=== PATIENT | male | born 1965 | race Caucasian/White ===

== ENCOUNTER 2017-04-11 10:36 | Emergency (ER) | payer OTHER ==
[~2017-04-11] VITALS: Ht 180.3 cm; Wt 136.1 kg
--- NOTE | ~2017-04-11 | EKG ---
[place] [address] [facility] [employer] [place] [address] ELECTROCARDIOGRAM REPORT Name: SHARLENE THORNE [facility] #: [facility]P 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
[~2017-04-11 10:36] MED LIST: ALDACTONE PO; AMLODIPINE BESYL5 MG PO; AMLODIPINE PO; AUGMENTIN 875875 MG PO; CIPRO PO; CIPRO500 MG PO; CIPROFLOXACIN500 M1 PO; DIGOXIN PO; GEMFIBROZIL 60600 MG PO; GLUCOPHAGE500 MG PO; IBUPROFEN200 MG PO; JANUVIA50 MG PO; LANOXIN 0.250.25 M1 PO; LEVEMIR SUBQ; LIPITOR20 MG PO; LISINOPRIL PO; LISINOPRIL40 MG PO; LOPRESSOR 50 MG50 M1 PO; LOPRESSOR PO; LOPRESSOR50 PO; LORTAB 5 MG/5001 TA1 PO; MEN'S MULTI-VI1 EACH PO; METFORMIN PO; NORVASC 5 MG TAB5 MG PO; NORVASC10 MG PO; NOVOLOG100 UNIT/M SUBQ; NOVOPEN 31 EACH SUBQ; SPIRONOLACTONE25 M1 PO; TOPROL XL50 MG PO; TYLENOL325 MG PO; ZESTRIL40 MG PO
[2017-04-11] MEDS ORDERED: SORINE 80 MG TA80 M1 PO (10:53)
[2017-04-11] MEDS ORDERED: COZAAR 50 MG TA50 M2 PO (10:54)
[2017-04-11] MEDS ORDERED: ELIQUIS5 MG PO (10:55)
[2017-04-11] MEDS ORDERED: HYDROCHLOROTHIA25 M1 PO (10:56)
[2017-04-11 10:57] LABS: ABSOLUTE NEUTROPHILS 6.9 thou/uL (1.4-8.2); BASOPHILS 0.8 % (0.0-2.0); EOSINOPHILS 2.1 % (0.0-3.0); HEMATOCRIT 38.7 % (42.0-52.0); HEMOGLOBIN 13.2 gm/dL (14.0-18.0); LYMPHOCYTES 23.4 % (24.0-44.0); MCH 31.7 pg (26.0-34.0); MCHC 34.2 g/dL (28.0-37.0); MCV 92.7 fL (80.0-100.0); MONOCYTES 8.8 % (1.0-8.0); PLATELET COUNT 345 thou/uL (150-400); POLYS 64.9 % (36.0-66.0); RBC 4.18 mil/uL (4.50-6.00); RDW 13.8 % (10.5-14.5); WBC 10.7 thou/uL (4.0-11.0)
[2017-04-11] MEDS ORDERED: HUMALOG100 UNIT/1 SUBQ (10:57)
[2017-04-11 11:04] LABS: MANUAL DIFF NO
[2017-04-11 11:11] LABS: ANION GAP 7 mmol/L (7-16); BUN 29 mg/dL (7-18); CALCIUM 9.6 mg/dL (8.5-10.1); CHLORIDE 100 mmol/L (98-107); CO2 29 mmol/L (21-32); CREATININE 1.8 mg/dL (0.7-1.3); GLUCOSE 262 mg/dL (74-106); POTASSIUM 3.9 mmol/L (3.5-5.1); SODIUM 136 mmol/L (136-145)
[2017-04-11 11:24] LABS: NT-PRO BRAIN NAT PEPTIDE 203 pg/mL (<300); TROPONIN-I < 0.04 ng/mL (<0.04-0.07)
[2017-04-11 13:23] VITALS: BP 148/83
== END 2017-04-11 13:25 | disposition home or self-care (01) ==
LOC: ER 10:36
PROVIDERS: Nurse Practitioner
DX: R07.89 Other chest pain (principal); I11.9 Hypertensive heart disease without heart failure; E11.9 Type 2 diabetes mellitus without complications; I48.91 Unspecified atrial fibrillation; N17.9 Acute kidney failure, unspecified; F10.99 Alcohol use, unspecified with unspecified alcohol-induced disorder; Z79.4 Long term (current) use of insulin

== ENCOUNTER 2018-10-19 20:34 | Emergency (ER) | payer OTHER ==
[~2018-10-19] VITALS: Ht 177.8 cm; Wt 90.7 kg
[~2018-10-19 20:34] MED LIST changes: +COZAAR 50 MG TA50 M2 PO; +ELIQUIS5 MG PO; +HUMALOG100 UNIT/1 SUBQ; +HYDROCHLOROTHIA25 M1 PO; +SORINE 80 MG TA80 M1 PO
[2018-10-19] MEDS ORDERED: LIPITOR10 MG PO (20:44)
[2018-10-19] MEDS ORDERED: FERREX 150 FORT1 CAP PO (20:44)
[2018-10-19] MEDS ORDERED: CARDIZEM CD120 MG PO (20:45)
[2018-10-19] MEDS ORDERED: NOVOLOG100 UNIT/1 SUBQ (20:46)
[2018-10-19] MEDS ORDERED: NOVOLOG100 UNIT/M SUBQ (20:47)
[2018-10-19] MEDS ORDERED: ZANTAC 150MG T150 MG PO (20:48)
[2018-10-19 22:23] LABS: URINE BILIRUBIN NEGATIVE (Negative); URINE BLOOD 3+ (Negative); URINE CLARITY CLEAR; URINE COLOR YELLOW; URINE GLUCOSE-RANDOM* NEGATIVE (Negative); URINE KETONES NEGATIVE (Negative); URINE NITRITE-REFLEX NEGATIVE (Negative); URINE PROTEIN (DIPSTICK) NEGATIVE (Negative); URINE SPECIFIC GRAVITY 1.015 (1.005-1.035); URINE UROBILINOGEN 0.2 E.U./dl (0.2-1.0)
[2018-10-19 22:31] LABS: URINE LEUKOCYTES-REFLEX 1+ (Negative)
[2018-10-19 22:32] LABS: CASTS None Seen /LPF (None Seen); MUCUS 0-3 Light strn/LPF (None Seen); SQUAMOUS 0-3 Few /LPF (0-3); URINE WBC-REFLEX 6-15 Few /HPF (0-5)
[2018-10-19 22:33] LABS: CRYSTALS None Seen /LPF (None Seen)
[2018-10-19 22:39] VITALS: BP 138/68
== END 2018-10-19 22:41 | disposition home or self-care (01) ==
LOC: ER 20:34
PROVIDERS: Nurse Practitioner Family
DX: R33.9 Retention of urine, unspecified (principal); I10 Essential (primary) hypertension; E11.9 Type 2 diabetes mellitus without complications; I48.91 Unspecified atrial fibrillation; N19 Unspecified kidney failure

== ENCOUNTER → 2018-11-25 | Outpatient (CLI) | payer OTHER ==
[~2018-11-25] MED LIST changes: +CARDIZEM CD 18180 M3 PO; +CARDIZEM CD120 MG PO; +CARVEDILOL25 MG PO; +FERREX 150 FORT1 CAP PO; +HYDRALAZINE 2525 MG PO; +HYDROCODON-ACE1 EAC7 PO; +KEFLEX500 M2 PO; +LIPITOR10 MG PO; +NOVOLOG100 UNIT/1 SUBQ; +TORSEMIDE10 MG PO; +ZANTAC 150MG T150 MG PO
[2018-11-25 09:05] VITALS: BP 124/59
[2018-11-25 09:29] VITALS: BP 124/59
[2018-11-25 10:30] VITALS: BP 127/65
--- NOTE | 2018-11-25 10:35 | NUR ---
HERE FOR 1ST OF 5 PLANNED VENOFER INFUSIONS FOR MICROCYTIC, IRON DEFICIENCY ANEMIA. PT DENIES ANY NOTED BLOOD LOSS OTHER THAN HEMORRHOIDS. C/O FATIGUE, DYSPNEA ON EXERTION, LOW ENERGY, OCCASIONAL LIGHT HEADEDNESS. FOUND ANEMIA ON BLOOD CHECK PRIOR TO A SCHEDULED ABLATION FOR HIS A-FIB. THAT PROCEDURE WAS PUT ON HOLD UNTIL ANEMIA IMPROVES. PT TOLERATED TODAY'S INFUSION WITHOUT INCIDENT, NO S/S REACTION. VERBALIZES UNDERSTANDING OF PLAN AND MATERIALS GIVEN TO HIM. SCHEDULED TO RETURN AGAIN ON FRIDAY. PHONED DR. BARRAGAN WHO SAID PT CAN COME IN FOR F/U LABS THE FIRST PART OF DECEMBER. DISMISSED IN STABLE CONDITION.
== END ==
LOC: OPONC 00:52
DX: D50.9 Iron deficiency anemia, unspecified (principal)
CPT/HCPCS: 95000

== ENCOUNTER → 2018-11-27 | Outpatient (CLI) | payer OTHER ==
[~2018-11-27] MED LIST changes: -CARDIZEM CD 18180 M3 PO; -CARVEDILOL25 MG PO; -HYDRALAZINE 2525 MG PO; -HYDROCODON-ACE1 EAC7 PO; -KEFLEX500 M2 PO; -TORSEMIDE10 MG PO
[2018-11-27 14:05] VITALS: BP 144/55
[2018-11-27 14:57] VITALS: BP 140/47
--- NOTE | 2018-11-27 15:18 | NUR ---
IN FOR #2 OF 5 VENOFER INFUSIONS. STATED TOLERATED FIRST INFUSION WITHOUT DIFFICULTY. DENIED PAIN. TOLERATED TODAY'S INFUSION WITHOUT INCIDENT. POST VITAL SIGNS GOOD. TO RETURN ON FRIDAY. DISMISSED IN GOOD CONDITION.
== END ==
LOC: OPONC 08:16
DX: D50.9 Iron deficiency anemia, unspecified (principal)
CPT/HCPCS: 95000

== ENCOUNTER → 2018-11-30 | Outpatient (CLI) | payer OTHER ==
[~2018-11-30] MED LIST changes: +HYDRALAZINE 2525 MG PO
[2018-11-30 14:05] VITALS: BP 142/74
[2018-11-30 15:15] VITALS: BP 136/72
--- NOTE | 2018-11-30 16:43 | NUR ---
IN FOR #3 OF 5 VENOFER INFUSIONS. PATIENT STATED HE FEELS LIKE HE IS GETTING STRONGER AND NOT TIRED. TOLERATED INFUSION WELL WITH NO ADVERSE REACTION NOTED. POST VITAL SIGNS GOOD. DISMISSED IN GOOD CONDITION. TO RETURN FRIDAY FOR NEXT INFUSION.
== END ==
LOC: OPONC 01:22
DX: D50.9 Iron deficiency anemia, unspecified (principal)
CPT/HCPCS: 95000

== ENCOUNTER → 2018-12-02 | Outpatient (CLI) | payer OTHER ==
[2018-12-02 14:10] VITALS: BP 106/48
--- NOTE | 2018-12-02 15:18 | NUR ---
HERE FOR 4TH OF 5 IRON SUCROSE INFUSIONS. REPORTS TOLERATING ALL OF THEM WITHOUT INCIDENT. DOES STATE THAT HE CAME DOWN WITH SOMETHING YESTERDAY AND WENT HOME AFTER WORK AND STRAIGHT TO BED AT 5PM C/O CHILLS, NAUSEA AND STOMACH PAINS. DID NOT TAKE TEMP. 99.1 UPON ARRIVAL TO CLINIC TODAY NAUSEA IS GONE, STILL FEELS A LITTLE ILL BUT FEELS LIKE HE CAN EAT SOMETHING NOW. FEELS A BIT CLAMMY. NO DIZZINESS OR OTHER SYMPTOMS NOTED. PT FEELS WELL ENOUGH FOR INFUSION. ADDED TO THIS, PT REPORTED TO NURSE THAT HIS L CALF HAS BEEN TIGHT AND PAINFUL FOR THE LAST 1.5 WEEKS AND THIS PRESENTED ITSELF OVERNIGHT. STATES CRAMPS AT NIGHT, FEELS BETTER AFTER WALKING ON IT, HURTS MORE WHEN HE FLEXES HIS FOOT. CALF IS TIGHT UPON EXAMINATION AND MEASURING 2" LARGER THAN HIS R CALF. MEASUREMENTS TAKEN OVER JEANS: R CALF 18.5", L CALF 20.5". PHONED TWO CONCERNS TO DR. GOTTI: 1. RECENT ILLNESS...OK TO PROCEED WITH IRON. OK'D TO PROCEED. 2. LLE EDEMA. RECEIVED ORDER FOR ULTRASOUND AND ARRANGED TO DO THIS THIS AFTERNOON UPON COMPLETION OF TODAY'S INFUSION. PT AGREEABLE. IRON INFUSION WITHOUT INCIDENT AT THIS TIME.
[2018-12-02 15:45] VITALS: BP 99/46
--- NOTE | 2018-12-02 15:54 | NUR ---
COMPLETED IRON INFUSION WITHOUT INCIDENT. AWAITING OPEN SPOT IN ULTRASOUND FOR DOPPLER OF LLE. PT WILL DISMISS FROM THERE ONCE DONE. ADVISED PT TO MONITOR HIS BP AND CALL HIS PHYSICIAN IF IT REMAINS LOW OR HE BECOMES SYMPTOMATIC. ENCROUAGED GOOD FLUID INTAKE ONCE HE GETS HOME IF HE IS NO LONGER NAUSEATED. HAS TOLERATED 2 GLASSES OF WATER WHILE HERE TODAY.
== END ==
LOC: ULTRA 02:33 → OPONC 02:33
DX: D50.9 Iron deficiency anemia, unspecified (principal); R60.0 Localized edema
CPT/HCPCS: 95000

== ENCOUNTER 2018-12-04 16:11 | Inpatient (IN) | payer OTHER ==
[~2018-12-04] VITALS: Ht 177.8 cm; Wt 131.9 kg
[~2018-12-04 16:11] MED LIST changes: -HYDRALAZINE 2525 MG PO
[2018-12-04 17:54] VITALS: BP 129/49
[2018-12-04 18:28] LABS: HEMATOCRIT 25.8 % (42.0-52.0); MCH 21.5 pg (26.0-34.0); MCV 69.4 fL (80.0-100.0); PLATELET COUNT 384 thou/uL (150-400); RBC 3.72 mil/uL (4.50-6.00); RDW 23.3 % (10.5-14.5); WBC 24.5 thou/uL (4.0-11.0)
[2018-12-04 18:42] LABS: ALBUMIN 2.5 g/dL (3.4-5.0); ANION GAP 13 mmol/L (7-16); BUN 31 mg/dL (7-18); CALCIUM 8.8 mg/dL (8.5-10.1); CHLORIDE 95 mmol/L (98-107); CO2 24 mmol/L (21-32); CREATININE 1.8 mg/dL (0.7-1.3); GLUCOSE 161 mg/dL (74-106); POTASSIUM 3.1 mmol/L (3.5-5.1); SGOT 21 U/L (15-37); SGPT 22 U/L (30-65); SODIUM 132 mmol/L (136-145); TOTAL BILIRUBIN 0.5 mg/dL (<0.1-1.0); TOTAL PROTEIN 7.6 g/dL (6.4-8.2); TROPONIN-I <0.06 ng/mL (<0.06)
[2018-12-04 18:53] LABS: ABSOLUTE NEUTROPHILS 21.3 thou/uL (1.4-8.2); ANISOCYTOSIS 1+
[2018-12-04 18:54] LABS: HYPOCHROMASIA 1+; MICROCYTES 1+
--- NOTE | 2018-12-04 19:40 | NUR ---
PT ARRIVED AT 1730. TEMP ELEVATED 99.7. LEFT LOWER EXTREMITY SWOLLEN, WARM AND WEEPY. EXTREMITY CLEANED AND DRESSING CHANGED AND ELEVATED. ALL OTHER VITALS REMAINED STABLE. NSR ON TELE. PT UP WITH 1 PERSON SBA, C/O PAIN IN LLE 01/15. Q1H VISUAL CHECKS. CALL LIGHT WITHIN REACH. FALL PRECAUTIONS IN PLACE
[2018-12-04 19:43] VITALS: BP 124/62
[2018-12-04 20:40] LABS: URINE BILIRUBIN NEGATIVE (Negative); URINE BLOOD TRACE (Negative); URINE CLARITY CLEAR; URINE COLOR YELLOW; URINE GLUCOSE-RANDOM* NEGATIVE (Negative); URINE KETONES TRACE (Negative); URINE NITRITE-REFLEX NEGATIVE (Negative); URINE PROTEIN (DIPSTICK) 2+ (Negative); URINE SPECIFIC GRAVITY 1.025 (1.005-1.035)
[2018-12-04 20:41] LABS: URINE LEUKOCYTES-REFLEX 2+ (Negative)
[2018-12-04 20:49] LABS: BACTERIA-REFLEX 1-9 Few /HPF (None Seen); CASTS None Seen /LPF (None Seen); CRYSTALS None Seen /LPF (None Seen); MUCUS 0-3 Light strn/LPF (None Seen); SQUAMOUS 0-3 Few /LPF (0-3); URINE RBC 3-10 Few /HPF (0-2); WBC CLUMPS Few (None Seen)
[2018-12-05 00:25] VITALS: BP 126/58
[2018-12-05 05:51] VITALS: BP 116/50
--- NOTE | 2018-12-05 07:50 | NUR ---
ASSUMED PT CARE AT 1900 WITH NO SIGN OF DISTRESS NOTED. PT IS ALERT AND ORIENTED. FAMILY AT BEDSIDE. PT DENIES ANY PAIN, BLOOD SUGAR CHECKED. PT'S VITAL SIGNS ARE STABLE. SCHEDULED MEDS AMDMINISTERED TO PT. PT TOLERATED MEDS. DENIES ANY FURTHER NEEDS AT THIS TIME.
[2018-12-05 09:36] VITALS: BP 130/73
[2018-12-05 11:02] LABS: % SATURATION 7 % (20-39); IRON 12 ug/dL (65-175); TIBC 173 ug/dL (250-450)
[2018-12-05 12:48] VITALS: BP 133/74
[2018-12-05] MEDS ORDERED: HYDRALAZINE 2525 MG PO (13:16)
[2018-12-05 16:00] VITALS: BP 126/69
--- NOTE | 2018-12-05 18:04 | NUR ---
ASSUMED CARE OF PATIENT AT 0700. ASSESSMENTS CHARTED. PATIENT IS RESTING COMFORTABLY IN THE BED AND MOVES HIMSELF TO THE SIDE FOR MEALS. PATIENT STATES THAT HE IS FEELING BETTER THAN WHEN HE WAS ADMITTED. HIS HOME MEDS WERE RESUMED. PATIENT HAS BEEN VERY COOPERATIVE AND PLEASANT. CONTINUE WITH POC.
[2018-12-05 20:14] VITALS: BP 127/69
--- NOTE | 2018-12-06 05:02 | NUR ---
ASSUMED PT CARE AT 1900 WITH NO SIGN OF DISTRESS NOTED. PT IS STABLE, PT IS ALERT AND ORIENTED. DENIES ANY NEEDS, SCHEDULED MEDS ADMINISTERED TO PT, PT DENIES ANY PAIN. NO FURTHER NEEDS AT THIS TIME
[2018-12-06 05:17] LABS: HEMOGLOBIN 7.5 gm/dL (14.0-18.0); MCHC 31.3 g/dL (28.0-37.0); MCV 70.3 fL (80.0-100.0); RBC 3.42 mil/uL (4.50-6.00); RDW 23.5 % (10.5-14.5); WBC 15.2 thou/uL (4.0-11.0)
[2018-12-06 05:25] LABS: CALCIUM 8.5 mg/dL (8.5-10.1); CREATININE 1.4 mg/dL (0.7-1.3); POTASSIUM 3.5 mmol/L (3.5-5.1)
[2018-12-06 10:30] VITALS: BP 128/78
--- NOTE | 2018-12-06 11:58 | EKG ---
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 : 1965 Requested By: Isaias Calabrese Order Number: [id number] MD: Isaias Calabrese Measurements Intervals [place] Rate: 92 P: [place]: QRS: -39 QRSD: 128 T: 61 QT: 407 QTc: 504 Interpretive Statements Atrial fibrillation Left bundle branch block Compared to ECG 04/11/2017 10:36:18 Atrial fibrillation is now present Electronically Signed On 12-06-2018 11:58:03 CDT by Isaias Calabrese [email or web address] ��������������������������������������������� <ELECTRONICALLY SIGNED> ���������������������������������������� By: Isaias Calabrese MD, [facility] ��������������������������������������������� 12/06/18 1158 0817 6 Isaias Calabrese MD, FACC /EPI
[2018-12-06 15:02] VITALS: BP 111/76
--- NOTE | 2018-12-06 16:41 | NUR ---
ASSUMED CARE OF PT AT 0700. PT A&OX4, STATES HE HAS PAIN IN LEFT LEG WHEN WALKING. PT'S VITALS WITHIN NORMAL LIMITS AND PT WAS AFIB ON TELEMETRY. PT'S DRESSING ON LEFT LEG (CELLULITIS) C/D/I, NO WEEPING TODAY. PT HAS INDWELLING WOLFE, NO BM TODAY. WILL CONT WITH POC.
[2018-12-06 19:35] VITALS: BP 143/83
--- NOTE | 2018-12-07 03:52 | NUR ---
ASSESSMENT DOCUMENTED.PT BEEN RESTING IN NO ACUTE DISTRESS.A/OX4.ADMITTED HERE WITH CELLULITIS TO LEFT LEG.DRESSING TO LEFT LEG CDI,NO DRAINING NOTED.C/O PAIN TO LEFT LEG THAT WAS CONTROLLED WITH PAIN MED.ON ANTIBIOTIC TX,TOLERATING.REMAINS AFEBRILE.VSS.AFIB ON MONITOR,RATE CONTROLLED.AIDEN DD,ADEQUATE UO.POC IS TO CONTINUE WITH ABT CARE.WILL CONT TO MONITOR PER POC.
[2018-12-07 04:40] VITALS: BP 124/72
[2018-12-07 06:03] LABS: HEMATOCRIT 25.9 % (42.0-52.0); MCH 21.5 pg (26.0-34.0); MCHC 30.7 g/dL (28.0-37.0); MCV 70.2 fL (80.0-100.0); RBC 3.7 mil/uL (4.50-6.00); RDW 23.1 % (10.5-14.5)
[2018-12-07 07:00] VITALS: BP 138/80
--- NOTE | 2018-12-07 09:08 | H ---
[facility] [place] [address] HISTORY AND PHYSICAL Name: SHARLENE THORNE Room #: 212-P ADM IN M.R.#: [id number] Admission: 12/04/18 ������������������ Attend Phys: Khadar Iqbal MD Discharge: ������������������ Date of : 61 Report #: [id number] THIS REPORT FOR: //name// CC: Khadar Iqbal DATE OF SERVICE: 12/04/2018 CHIEF COMPLAINT: Swelling and redness of the left leg and shortness of breath. HISTORY OF PRESENT ILLNESS: The patient is a 53-year-old gentleman, with multiple medical problems, who was admitted from the office with swelling and redness of the left lower leg and shortness of breath. He said he has been feeling sick for 3-4 days, initially with swelling of his left leg. He has been receiving IV iron infusions as an outpatient for microcytic anemia and on Friday, he was there when nursing noted he had swelling of his left leg. He had been receiving Cipro for chronic urinary retention and UTI for which he has an indwelling Butler catheter managed by Dr. Burch. Doppler ultrasound of the leg was performed, which reportedly was negative for DVT by the patient. In the office, he had a temperature of 99.1 and O2 sat on room air of 88%. The left leg showed redness and swelling with some weeping. PAST MEDICAL HISTORY: Diabetes type 2, hypertension, GERD, inflammatory arthritis, microcytic anemia, nonischemic cardiomyopathy, cholelithiasis. He has had previous admissions for cellulitis of the legs. He has had admissions for recurrent UTI, chronic urinary retention, I believe, due to urethral stricture with history of infections. This is being managed by Dr. Burch on an outpatient basis. Atrial fibrillation. PAST SURGICAL HISTORY: Noncontributory. FAMILY HISTORY: Unknown. SOCIAL HISTORY: He is a . He was working. No chronic alcohol or tobacco use. ALLERGIES: None. MEDICATIONS: Eliquis 5 mg twice a day, sotalol 160 mg b.i.d., Levemir 70 units daily, NovoLog 20 units with meals, amlodipine 10 mg, hydrochlorothiazide 25 mg, Cardizem CD 120 mg, Lipitor 10 mg, Zantac 300 mg. REVIEW OF SYSTEMS: He denies headache, chest pain, shortness of breath, abdominal pain, nausea, vomiting, diarrhea, constipation, dysuria or syncope. OBJECTIVE: VITAL SIGNS: Blood pressure 135/87, temperature 99.1. Weight is 306, pulse was [facility] [address] [place] [address] HISTORY AND PHYSICAL Name: SHARLENE THORNE Room #: 212-P [facility]#: [id number] Admission: 12/04/18 ������������������ Attend Phys: Khadar Iqbal MD Discharge: ������������������ Date of : 61 Report #: [id number], O2 sat 88% on room air. GENERAL: He was awake and alert, in no distress. HEAD AND NECK: Unremarkable. LUNGS: Clear. HEART: Irregular. No murmur. ABDOMEN: Obese, soft, normoactive bowel sounds. EXTREMITIES: No edema on the right leg. Left lower leg has circumferential erythema with an excoriation anteriorly. There is some weeping of serous zapata fluid, 3+ edema. NEUROLOGIC: Grossly intact. ASSESSMENT: 1. Cellulitis of the left lower leg. 2. Chronic atrial fibrillation. 3. Nonischemic cardiomyopathy. 4. Chronic urinary retention with Butler catheter. 5. Febrile illness. 6. Hypoxia. 7. Diabetes, type 2. 8. Morbid obesity. PLAN: Lab work, cultures, x-ray will be obtained and then empiric Ancef will be started. I will ask the cardiology service to follow him as well. ��������������������������������������������� <ELECTRONICALLY SIGNED> ���������������������������������������� By: Khadar Iqbal MD ��������������������������������������������� 12/07/18 0908 1649 [id number] Khadar Iqbal MD /nt
[2018-12-07 12:00] VITALS: BP 122/81
--- NOTE | 2018-12-07 13:55 | NUR ---
WOUND CONSULT; ASSESSMENT IF THIS PATIENT'S LLE REVEALS ERYTHEMA AND MILD HEMOSIDERIN STAINING WITH AN OPEN WOUND DRAINING YELLOW TINGED DRAINAGE. EDEMA IS UNILATERAL. DENIES PAIN. PT WAS FOUND WITH BOTH LEGS ON THE BED COMFORTABLY. THIS IS CONSISTANT WITH VENOUS STASIS NOT ARTERIAL. GOOD PULSES FELT AND WARM TO TOUCH. THIS PATIENT IS ON IV ANTIBIOTICS. RECOMENDATIONS; LYMPHEDEMA WRAPS WHEN APPROPRIATE FOR NOW USE ABDS, SECURE WITH KERLIX. DISCUSSED WITH JAVIER
--- NOTE | 2018-12-07 14:05 | NUR ---
Assess due to pt with dx cellulitis lower extremity. Hx diabetes and BG are elevated 144-284. Requires insulin. Pt voiced appetite as good, no questions regarding carb controlled diet, able to order own foods from menu options. Class III extreme obesity with BMI of 43. 3+ left food edema. Low nutrition risk.
[2018-12-07 16:00] VITALS: BP 147/82
[2018-12-07 19:29] VITALS: BP 133/71
--- NOTE | 2018-12-07 19:42 | NUR ---
ASSUMED CARE OF PT AT 0700. PT A&OX4, UP AD DIYA. PT'S LEFT CALF WITH CELLULITIS HAS WEEPING BLISTERS. SWELLING AND REDNESS IMPROVED FROM YESTERDAY. WOUND NURSE REDRESSED LEG. PT OFFERED SHOWER SEVERAL TIMES BUT REFUSED. PT ENCOURAGED TO GET OUT OF BED. PT HAD US OF THYROID TODAY. VITALS WNL, BP SLIGHTLY HIGH. HEART RHYTHM AFIB. FLUID RESTRICTION OF 1500 MLS ENFORCED. WILL CONT WITH POC.
--- NOTE | 2018-12-08 02:06 | NUR ---
ASSESSMENT DOCUMENTED.PT BEEN RESTING IN NO ACUTE DISTRESS.A/OX4.VSS.LEFT LEG ELEVATED AND DRESSING CDI.CONT WITH ABT FOR CELLULITIS TO LEFT LEG,TOLERATING.WOLFE DD,LARGE AMOUNT OF JOSELIN URINE.PAIN CONTROLLED WITH PAIN MEDS.PT DENIES ANY NEEDS AT THIS TIME.WILL CONT TO MONITOR PER POC.
[2018-12-08 05:12] VITALS: BP 156/78
[2018-12-08 05:19] LABS: HEMATOCRIT 26.5 % (42.0-52.0); HEMOGLOBIN 8.3 gm/dL (14.0-18.0); MCH 22.1 pg (26.0-34.0); MCHC 31.3 g/dL (28.0-37.0); MCV 70.6 fL (80.0-100.0); RBC 3.76 mil/uL (4.50-6.00); RDW 22.8 % (10.5-14.5); WBC 14.5 thou/uL (4.0-11.0)
[2018-12-08 05:31] LABS: CALCIUM 9.3 mg/dL (8.5-10.1); CREATININE 1.4 mg/dL (0.7-1.3); POTASSIUM 4.3 mmol/L (3.5-5.1)
[2018-12-08 08:29] VITALS: BP 144/93
[2018-12-08 12:12] VITALS: BP 127/59
--- NOTE | 2018-12-08 15:07 | HC ---
[facility] [place] [address] CONSULTATION Name: SHARLENE THORNE Room #: 212-P ADM IN M.R.#: [id number] Admission: 12/04/18 ������������������ Attend Phys: Khadar Iqbal MD Discharge: ������������������ Date of : 61 Report #: [id number] THIS REPORT FOR: //name// CC: Khadar Iqbal REASON FOR CONSULTATION: I was asked to evaluate concerning left lower extremity cellulitis and leukocytosis. HISTORY OF PRESENT ILLNESS: The patient is a 53-year-old underlying history of diabetes. He also has urethral stricture, who has been with an indwelling Butler catheter for last several months. Presents now with increased pain, swelling in his left lower extremity. Symptoms progressed approximately 2 weeks ago. Then developed fever up to 102 degrees. He was hospitalized for such and placed on cefepime. His temperature has come down. His white count was initially 24,000, now 13. His pain has been persistent, first was about an 8, now is down to 2-3. He has had no injury. Ultrasound was negative for DVT. He was found to have atrial fibrillation with rapid ventricular response. This is now rate controlled and he is going to be set up for a cardiac ablation next week. Denies any nausea, vomiting or diarrhea. Was on ciprofloxacin for cystitis over a week ago. Ciprofloxacin was used and he has now finished his course. ALLERGIES: None. MEDICATIONS: As noted on his MAR, now including cefepime. PAST MEDICAL HISTORY: Hypertension, hyperlipidemia, coronary artery disease, urethral stricture, diabetes. FAMILY HISTORY: Noncontributory. SOCIAL HISTORY: Nonsmoker, no significant alcohol intake. REVIEW OF SYSTEMS: Denies any headache, cough, sputum, nausea, vomiting or diarrhea. No pleuritic chest pain. No palpitations or presyncopal symptoms. A 10-point review was negative other than what is described above. PHYSICAL EXAMINATION: VITAL SIGNS: Afebrile and hemodynamically stable. Alert and cooperative and pleasant, in no acute distress. EXTREMITIES: Left lower extremity had 3+ edema associated with cellulitis and some skin breakdown with serous drainage in the pretibial skin. He was significantly tender below the knee. Cellulitis involved his ankle to his proximal calf region. No other skin lesions noted. No palpable adenopathy. EYES: Without scleral icterus. MOUTH: Without mucositis. NECK: Supple, with no thyromegaly or mass. CARDIOVASCULAR: Irregular without appreciable murmur, gallop or rub. [facility] [address] [place] [address] CONSULTATION Name: SHARLENE THORNE Room #: 212-P [facility] IN M.R.#: [id number] Admission: 12/04/18 ������������������ Attend Phys: Khadar Iqbal MD Discharge: ������������������ Date of : 61 Report #: [id number] ABDOMEN: Soft, nontender, no hepatosplenomegaly or mass. Moderately obese. External genitalia with small amount of purulent drainage from his urethra. He had an indwelling Butler catheter. No testicular swelling. RECTAL: Not performed. Strength in his lower extremities was normal. Sensation in his lower extremities was normal. Cranial nerves intact. Pulses in the left lower extremity were palpable. LABORATORY STUDIES: Sodium 131, potassium 3.5, bicarbonate normal. Creatinine 1.4. Liver function test normal. Hemoglobin 8, platelet count 459,000, WBC 13,000. Blood cultures negative to date. Urinalysis had 16-25 wbc's, 1-9 bacteria. Blood cultures and urine cultures are pending. Ultrasound shows negative for DVT. Chest x-ray was clear. Ultrasound of his thyroid showed a nodule on the left with enlargement. IMPRESSION: 1. Left lower extremity cellulitis with fever and leukocytosis. Has associated significant lymphedema in the left lower extremity. 2. Atrial fibrillation with rapid ventricular response to have cardiac ablation planned for next week. 3. Urethral stricture with recent cystitis. 4. Underlying diabetes. RECOMMENDATIONS: We will continue his IV antibiotics with cefazolin. We will need further leg elevation and edema control. Localized wound care. Would like the left leg improved prior to pursuing cardiac ablation. The patient will continue with his indwelling Butler catheter. Needs more penile meatus care. Control blood glucose. ��������������������������������������������� <ELECTRONICALLY SIGNED> ���������������������������������������� By: Salo Tony MD ��������������������������������������������� 12/08/18 1507 [id number] Salo Tony MD /nt
[2018-12-08 16:08] VITALS: BP 114/61
--- NOTE | 2018-12-08 16:42 | NUR ---
met with patient who admits due to cellulitis. Patient resides at home independently with dtr and grandchildren. 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 He reports cellulitis started on Friday. He is to have an ablation of heart January 05. He has worked with therapy who recommended possible HH care. patient does not feel HH necessary he reports plan home independently and he will f/u with his PCP Dr Iqbal as needed on outpatient. [facility] following for dc planning.
--- NOTE | 2018-12-08 17:29 | NUR ---
ASSESSMENT DOCUMENTED. PT ALERT AND ORIENTED. VSS. AFIB ON THE MONITOR. RECEIVED PRN PAIN MED WITH PARTIAL RELIEF. WOUND CARE PROVIDED. IV ABX GIVEN ORDERED. WILL CONTINUE TO MONITOR.
[2018-12-08 20:56] VITALS: BP 102/61
[2018-12-09 04:03] LABS: CALCIUM 8.6 mg/dL (8.5-10.1); CREATININE 1.5 mg/dL (0.7-1.3); POTASSIUM 4.7 mmol/L (3.5-5.1)
[2018-12-09 05:30] VITALS: BP 134/71
--- NOTE | 2018-12-09 07:34 | NUR ---
ASSUMED PT CARE AT 1900 WITH NO SIGN OF DISTRESS NOTED, PT IS ALERT AND ORIENTED AND DENIES ANY NEEDS AT THIS TIME, SCHEDULED MEDS ADMINISTERED TO PT. PT IS STABLE VITAL SIGN STABLE. CONTINUE NURSING POC
[2018-12-09 07:47] VITALS: BP 133/72
[2018-12-09 10:52] VITALS: BP 106/67
[2018-12-09 15:20] VITALS: BP 113/55
--- NOTE | 2018-12-09 18:13 | NUR ---
ASSESSMENT DOCUMENT PT ALERT AND ORIENTED. VSS. RECEIVED PRN PAIN MED WITH PARTIAL RELIEF. HAD A SHOWER THIS AM. ENCOURAGED TO ELEVATE LEFT LEG. TUBI IN PLACE. IV ABX GIVEN ORDERED. PROGRESSING SLOWLY TOWARD DISCHARGE GOAL. WILL CONTINUE TO MONITOR.
[2018-12-09 19:28] VITALS: BP 116/66
[2018-12-10 04:07] VITALS: BP 132/77
[2018-12-10 05:19] LABS: CALCIUM 8.5 mg/dL (8.5-10.1); CREATININE 1.2 mg/dL (0.7-1.3); POTASSIUM 4.8 mmol/L (3.5-5.1)
--- NOTE | 2018-12-10 07:34 | NUR ---
ASSESSMENTS CHARTED. RESTED EASILY DURING SHIFT. URINE CULTURE CAME BACK POSITIVE FOR STAPHYLOCOCCUS AUREUS. 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 PATIENT HAS AN ABLATION SCHEDULED AT [facility] ON 01/05/19 THAT HE IS HOPING TO STILL GO TO.
[2018-12-10 08:00] VITALS: BP 137/78
[2018-12-10 12:37] VITALS: BP 129/71
--- NOTE | 2018-12-10 14:53 | NUR ---
AAAOX4 VERY PLESANT AND COOPERATIVE. REPORTS INCREASED PAIN IN LLE WHEN UP. TYLENOL GIVEN FOR PAIN WITH SOME RELIEF. GOOD APPETITE. IV RIGHT FOREARM. LUNGS CLEAR ON ROOM AIR. LEFT LOWER LEG COVERED WITH COMPRESSION STOCKING. VOID PER URINAL
[2018-12-10 16:00] VITALS: BP 127/71
[2018-12-10 19:42] VITALS: BP 133/71
[2018-12-11 05:13] LABS: HEMATOCRIT 26.6 % (42.0-52.0); HEMOGLOBIN 8.2 gm/dL (14.0-18.0); MCH 22.5 pg (26.0-34.0); MCHC 30.9 g/dL (28.0-37.0); MCV 72.8 fL (80.0-100.0); RBC 3.66 mil/uL (4.50-6.00); RDW 24.7 % (10.5-14.5); WBC 13.4 thou/uL (4.0-11.0)
[2018-12-11 05:29] LABS: CALCIUM 8.8 mg/dL (8.5-10.1); CREATININE 1.3 mg/dL (0.7-1.3); POTASSIUM 4.4 mmol/L (3.5-5.1)
[2018-12-11 05:38] VITALS: BP 130/73
--- NOTE | 2018-12-11 08:01 | NUR ---
ASSUME CARE 1900. INTERMITTENT LEFT LEG PAIN. UP WITH WALKER. PT IS MOSTLY INDEPENDENT. ASSESSMENT CHARTED. PROGRESSING WELL WITH POC. PLAN IS POSSIBE DISCHARGE HOME TODAY WITH WOLFE CATH. PLANNED ABLATION FOR 01/05/19. WILL CONTINUE TO MONITOR AND FOLLOW WITH POC
[2018-12-11 08:02] VITALS: BP 142/83
[2018-12-11 12:00] VITALS: BP 121/64
--- NOTE | 2018-12-11 12:54 | NUR ---
SPOKE WITH DR. PAREKH AND HE PLACED DISCONTINUE WOLFE CATHETER ORDER ON WRONG PATIENT.
--- NOTE | 2018-12-11 13:16 | NUR ---
FWW script rec'd and given to [facility] to issue dme to pt prior to dc. Pt doing better with gait with the aid of the walker. Continued c/o pain in his le. Likely dc to home in 1-2 days. Should he need continued iv atb at discharge; the pt would like to have it arranged through our outpt infusion services as he has been getting iron infusions here. Plan is home when pain and swelling decreased.
[2018-12-11 13:20] VITALS: BP 142/83
[2018-12-11 16:00] VITALS: BP 138/86
--- NOTE | 2018-12-11 17:59 | NUR ---
CLEAND PT'S LEG TODAY AND APPLIED PRESSURE STOCING. PT ATE MOST OF MEALS AND REAMIN ON SCHEDULED INSULIN. START HYDROCODONE TO TREAT PAIN.
[2018-12-11 21:52] VITALS: BP 112/57
--- NOTE | 2018-12-12 05:32 | NUR ---
ASSUME CARE 1900. PT/VITALS STABLE. INTERMITTENT LEFT LEG PAIN. UP WITH CANE/STABLE ON FEET. ADEQUATE REST NOTED THROUGH SHIFT. ASSESSMENT CHARTED. PROGRESSING WELL WITH POC. PT IS STILL AFIB ON MONITOR WITH CONTROLLED RATE. PLAN IS TO KEEP PT THROUGH THE WEEKEND AND CONTINUE ABX TRTEATMENT. WILL CONTINUE TO MONITOR AND FOLLOW WITH POC
[2018-12-12 07:55] VITALS: BP 116/60
[2018-12-12 11:23] VITALS: BP 113/66
[2018-12-12 17:08] VITALS: BP 123/71
[2018-12-12 19:21] VITALS: BP 124/74
--- NOTE | 2018-12-12 20:01 | NUR ---
ASSUMED CARE OF PT AT 0700. PT A&OX4, UP WITH WALKER. PT WAS VISITED BY DR. Miky PAREKH AND HE HAD PT LEAVE LEG OPEN TO AIR. CELLULITIS IMPROVING: LESS SWELLING, REDNESS AND LEG IS NOT WEEPING. PT WAS AFIB AND VITALS WITHIN NORMAL LIMITS. WILL CONT WITH POC.
--- NOTE | 2018-12-13 03:44 | NUR ---
RECEIVED PT'S CARE AROUND 1930; PT. ON BED; NO C/O PAIN; DURING HS MEDICATION PT. REQUESTED PRN PAIN MEDICATION AND MELATONIN; ST. ONLY TAKES 2 MELANTONIN AND NO 3 PER ORDER; PAIN DECREASE DURING RE-ASSESSMENT; REQUEST TO HAVE DOUGLAS HOSE BACK; NEW IV STARTED ON R. WRIST; ABLE TO REST AFTER MIDNIGH; ASSESSMENT CHARGED; FOLLOWING POC; WILL PASS ON REPORT.
[2018-12-13 04:11] VITALS: BP 107/62
[2018-12-13 09:00] VITALS: BP 127/4
[2018-12-13 11:20] VITALS: BP 121/70
[2018-12-13 16:29] VITALS: BP 116/75
--- NOTE | 2018-12-13 16:39 | NUR ---
ASSUMED CARE OF PT AT 0700. PT A&OX4, UP WITH WALKER. PT VITALS WNL AND PT WAS AFIB CONTROLLED RATE ON TELEMETRY. PT'S RIGHT LEG WITH CELLULITIS IMPROVING. SWELLING AND REDNESS DECREASED AND NO WEEPING. DR. Miky PAREKH TOLD PT TO KEEP LEG OPEN TO AIR. 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 PT HAD PAIN CONTROLLED WITH MEDICATIONS. PT ENCOURAGED TO AMBULATE AND SHOWER. PT HAD LUNG CRACKLES AND ENCOURAGED TO DEEP BREATH AND COUGH. WILL CONT WITH POC.
[2018-12-13 20:08] VITALS: BP 127/73
--- NOTE | 2018-12-14 04:13 | NUR ---
PT RESTING QUIETLY THRU THE NOC, VSS, PRN PAIN MED GIVEN AT HS, WOLFE CON'T TO DRAIN YELLOW URINE, PT HOPING TO GO HOME TODAY, WILL CON'T TO MONITOR PER PPOC.
[2018-12-14 05:49] VITALS: BP 124/74
[2018-12-14 08:32] VITALS: BP 147/91
[2018-12-14 12:41] VITALS: BP 114/73
[2018-12-14] MEDS ORDERED: CARVEDILOL25 MG PO (12:48)
[2018-12-14] MEDS ORDERED: HYDROCODON-ACE1 EAC7 PO (12:49)
[2018-12-14] MEDS ORDERED: CARDIZEM CD 18180 M3 PO (12:49)
[2018-12-14] MEDS ORDERED: TORSEMIDE10 MG PO (12:49)
[2018-12-14] MEDS ORDERED: KEFLEX500 M2 PO (12:52)
[2018-12-14 13:23] VITALS: BP 142/83
--- NOTE | 2018-12-14 13:41 | NUR ---
patient to dc home, no home health care and no planned for home infusion no further needs
--- NOTE | 2018-12-14 14:09 | NUR ---
ASSUMED CARE AT SHIFT CAHNGE, ALERT AND ORIENTED X4. SR AND VSS. C/O PAIN MEDICATED NEEDED X1. DISCHARGE AND MEDICATION INSTRUCTIONS GIVEN AND PATIENT DISCHARGED HOME WITH A FRIEND.
--- NOTE | 2018-12-15 09:32 | D ---
[facility] [place] [address] DISCHARGE SUMMARY Name: SHARLENE THORNE Room #: 212-P [facility] M.R.#: [id number] Admission: 12/04/18 ������������������ Attend Phys: Khadar Iqbal MD Discharge: 12/14/18 ������������������ Date of : 61 Report #: [id number] THIS REPORT FOR: //name// CC: Khadar Iqbal DATE OF SERVICE: 12/14/2018 FINAL DIAGNOSES: 1. Cellulitis of the left lower extremity. 2. Chronic atrial fibrillation. 3. Diabetes type 2. 4. Chronic urinary retention with Butler catheter in place. 5. Chronic microcytic anemia. HOSPITAL COURSE: The patient was admitted with febrile illness and cellulitis to the left leg. IV antibiotics were ordered and I consulted ID who managed the antibiotics. Cardiology service managed his AFib and had to make some adjustments in his medications from sotalol to Coreg and Cardizem. His infection was slow to respond as evidenced by significant pain when standing to walk, but also elevated white count for a number of days. Even after 10 days of IV antibiotics, he leg was just beginning to dry up from the weeping areas and was still somewhat faintly erythematous. PHYSICAL EXAMINATION: On the day of discharge: GENERAL: He was awake and alert. VITAL SIGNS: Stable. LUNGS: Clear. HEART: Regular. ABDOMEN: Soft, normoactive bowel sounds. EXTREMITIES: On the left lower leg showed 2+ edema with slight improvement. There is some faint erythema and some dried scabbed areas. DISPOSITION: He will be discharged to home with diabetic diet, activity as tolerated. He will resume Eliquis on 12/17/2018 after being held for concerns of persistent gastrointestinal blood loss anemia despite negative GI workup as an outpatient. Will have cephalexin 1000 mg twice a day for a week. He is to stop hydralazine, Norvasc and sotalol at home and switch to Coreg 50 mg twice a day and he will maintain his Cardizem 120 a day. Follow up with me in 10 days. ��������������������������������������������� <ELECTRONICALLY SIGNED> ���������������������������������������� By: Khadar Iqbal MD ��������������������������������������������� 12/15/18 [id number] Khadar Iqbal MD /nt
== END 2018-12-14 14:15 | disposition home or self-care (01) | DRG 603 ==
LOC: 2N 16:11 → ENTRNSPT 12-14 13:53 → EDTRNSPTSTS 12-14 13:58 → 2N 12-14 14:15
PROVIDERS: Internal Medicine; ADMIT Internal Medicine Geriatric Medicine
DX: L03.116 Cellulitis of left lower limb (principal); N17.9 Acute kidney failure, unspecified; I42.9 Cardiomyopathy, unspecified; Z68.41 Body mass index [BMI] 40.0-44.9, adult; N39.0 Urinary tract infection, site not specified; E78.5 Hyperlipidemia, unspecified; I25.10 Atherosclerotic heart disease of native coronary artery without angina pectoris; N35.919 Unspecified urethral stricture, male, unspecified site; I48.2 Chronic atrial fibrillation; R33.9 Retention of urine, unspecified; D50.9 Iron deficiency anemia, unspecified; K21.9 Gastro-esophageal reflux disease without esophagitis; M19.90 Unspecified osteoarthritis, unspecified site; E66.01 Morbid (severe) obesity due to excess calories; I48.0 Paroxysmal atrial fibrillation; N18.9 Chronic kidney disease, unspecified; E11.22 Type 2 diabetes mellitus with diabetic chronic kidney disease; I12.9 Hypertensive chronic kidney disease with stage 1 through stage 4 chronic kidney disease, or unspecified chronic kidney disease; E05.90 Thyrotoxicosis, unspecified without thyrotoxic crisis or storm; Z79.4 Long term (current) use of insulin; Z79.899 Other long term (current) drug therapy
CPT/HCPCS: 10081

== ENCOUNTER → 2019-01-01 | Outpatient (CLI) | payer OTHER ==
[~2019-01-01] MED LIST changes: +CARDIZEM CD 18180 M3 PO; +CARVEDILOL25 MG PO; +HYDRALAZINE 2525 MG PO; +HYDROCODON-ACE1 EAC7 PO; +KEFLEX500 M2 PO; +TORSEMIDE10 MG PO
== END ==
LOC: ULTRA 10:35
DX: M71.22 Synovial cyst of popliteal space [Baker], left knee (principal); M25.462 Effusion, left knee; L03.116 Cellulitis of left lower limb